=== PATIENT | male | born 1965 | race Caucasian/White ===

== ENCOUNTER 2019-01-05 02:37 | Inpatient (IN) | payer OTHER ==
[2019-01-05] MEDS ORDERED: KETOROLAC TROMETHAMINE 30 MG/1 ML VIAL IVPUSH ONE (03:23)
[2019-01-05] MEDS ORDERED: KETOROLAC TROMETHAMINE 30 MG/1 ML VIAL ONE (03:30)
[2019-01-05 03:48] LABS: BASO % 0.3 % (0-2.0); EOS % 1.3 % (0-4.5); HEMATOCRIT 46.3 % (35.4-49); HEMOGLOBIN 15.3 GM/dL (11.7-16.9); LYMPH % 12.1 % (8-40); MCH 30.5 pg (25.7-33.7); MCHC 33.1 g/dl (32.0-35.9); MEAN CELL VOLUME 92.3 fl (80-96); MEAN PLT VOLUME 7.6 fl (7.5-11.1); MONO % 5.7 % (3.8-10.2); NEUT % 80.6 % (42.8-82.8); PLATELET COUNT 282 K/MM3 (134-434); RBC 5.02 M/mm3 (4.00-5.60); WHITE BLOOD COUNT 14.1 K/mm3 (4.0-10.0)
[2019-01-05 04:11] LABS: EPI CELLS 0.3 /HPF (0-5/HPF); PH,URINE 5.5 (5.0-8.0); URINE APPEARANCE CLEAR; URINE BACTERIA 2.7 /hpf (NEGATIVE); URINE BILIRUBIN NEGATIVE (NEGATIVE); URINE CASTS 1 /lpf (0-8); URINE COLOR YELLOW; URINE GLUCOSE (UA) NEGATIVE (NEGATIVE); URINE KETONE NEGATIVE (NEGATIVE); URINE LEUK ESTERASE NEGATIVE (NEGATIVE); URINE NITRITE NEGATIVE (NEGATIVE); URINE PROTEIN TRACE (NEGATIVE); URINE RBC 114 /hpf (0-4); URINE UROBILINOGEN 0.2 mg/dL (0.2-1.0); URINE WBC 2 /hpf (0-5)
[2019-01-05 04:25] LABS: ALBUMIN 4.2 g/dl (3.4-5.0); ALK PHOS 110 U/L (45-117); ANION GAP 9 MMOL/L (8-16); BILIRUBIN,TOTAL 0.5 mg/dL (0.2-1); BLOOD UREA NITROGEN 17 mg/dL (7-18); CALCIUM 9.1 mg/dL (8.5-10.1); CHLORIDE 110 mmol/L (98-107); CO2 21 mmol/L (21-32); CREATININE 1.1 mg/dL (0.55-1.3); GLUCOSE,RANDOM 115 mg/dL (74-106); POTASSIUM 3.7 mmol/L (3.5-5.1); SGOT/AST 34 U/L (15-37); SGPT/ALT 68 U/L (13-61); SODIUM 139 mmol/L (136-145)
[2019-01-05] MEDS ORDERED: HYDROmorphone HCL CARPU-JECT 2 MG/1 ML DISP.SYRIN IVPUSH ONE (04:33)
[2019-01-05] MEDS ORDERED: HYDROmorphone HCl 2 MG/ML VIAL ONE (04:42)
--- NOTE | 2019-01-05 05:21 | PDOC ---
History of Present Illness - General Chief Complaint: Pain, Acute Stated Complaint: PAIN,KIDNEY Time Seen by Provider: 01/05/19 03:19 History Source: Patient Exam Limitations: No Limitations - History of Present Illness Initial Comments: 01/05/19 05:13 53M with a PMH of HTN and nephrolithiasis who presents with 2 days of L flank pain. Pt states that he was seen recently at [facility] and left AMA. He admits to L flank pain which radiates down to his pelvis. He denies hematuria, fever, chills , nausea, vomiting, testicular pain. Past History - Past Medical History Allergies/Adverse Reactions: Allergies Allergy/AdvReac Type Severity Reaction Status Date / Time No Known Allergies Allergy Verified 01/05/19 03:16 Home Medications: Ambulatory Orders Metaxalone 400 mg PO Q8H PRN #30 tablet 01/01/16 Oxycodone HCl/Acetaminophen [Percocet 5-325 mg Tablet -] 1 - 2 tab PO Q4H PRN # 10 tablet MDD 4 01/01/16 - Suicide/Smoking/Psychosocial Hx Smoking History: Never smoked Have you smoked in the past 12 months: No Information on smoking cessation initiated: No Hx Alcohol Use: No Drug/Substance Use Hx: No Review of Systems - Review of Systems Able to Perform ROS?: Yes Comments:: 01/05/19 05:21 GENERAL/CONSTITUTIONAL: No fever or chills. No weakness. HEAD, EYES, EARS, NOSE AND THROAT: No change in vision. No ear pain or discharge. No sore throat. CARDIOVASCULAR: No chest pain, palpitations, or lightheadedness. RESPIRATORY: No cough, wheezing, shortness of breath, or hemoptysis. GASTROINTESTINAL: No nausea, vomiting, diarrhea, constipation, or abdominal pain. GENITOURINARY: + for L flank pain. No dysuria, frequency, hematuria, or change in urination. MUSCULOSKELETAL: No joint or muscle swelling or pain. No neck or back pain. SKIN: No rash or lesions. NEUROLOGIC: No headache, numbness, tingling, focal weakness, loss of consciousness, or change in strength/sensation. Is the patient limited Singaporean proficient: No *Physical Exam - Vital Signs Last Vital Signs Temp Pulse Resp BP Pulse Ox 97.9 F 75 18 145/98 98 01/05/19 02:37 01/05/19 02:37 01/05/19 02:37 01/05/19 02:37 01/05/19 02:37 - Physical Exam Comments: 01/05/19 05:22 GENERAL: Well developed, well nourished. Awake and alert. In moderate distress. HEENT: Normocephalic, atraumatic. Hearing grossly normal. Moist mucous membranes. PERRLA, EOMI. No conjunctival pallor. Sclera are non-icteric. NECK: Supple. Full ROM. No JVD. CARDIOVASCULAR: Regular rate and rhythm. No murmurs, rubs, or gallops. PULMONARY: No evidence of respiratory distress. Lungs clear to auscultation bilaterally. No wheezing, rales or rhonchi. ABDOMINAL: Soft. TTP in LLQ. Non-distended. No rebound or guarding. GENITOURINARY: L CVA tenderness. MUSCULOSKELETAL: Normal range of motion at all joints. No bony deformities or tenderness. EXTREMITIES: No cyanosis. No clubbing. No edema. No calf tenderness or swelling. SKIN: Warm and dry. Normal capillary refill. No rashes. No jaundice. NEUROLOGICAL: Alert, awake, appropriate. Cranial nerves 2-12 grossly intact. Normal speech. Gait is normal without ataxia. PSYCHIATRIC: Cooperative. Good eye contact. Appropriate mood and affect. ED Treatment Course - LABORATORY CBC & Chemistry Diagram: 01/05/19 03:30 01/05/19 03:30 - ADDITIONAL ORDERS Additional order review: Laboratory Results 01/05/19 01/05/19 03:52 03:30 Sodium 139 Potassium 3.7 Chloride 110 H Carbon Dioxide 21 Anion Gap 9 BUN 17 Creatinine 1.1 Creat Clearance w eGFR 69.76 Random Glucose 115 H Calcium 9.1 Total Bilirubin 0.5 AST 34 ALT 68 H Alkaline Phosphatase 110 Total Protein 8.0 Albumin 4.2 Urine Color Yellow Urine Appearance Clear Urine pH 5.5 Ur Specific [place] 1.019 Urine Protein Trace Urine Glucose (UA) Negative Urine Ketones Negative Urine Blood 2+ H Urine Nitrite Negative Urine Bilirubin Negative Urine Urobilinogen 0.2 Ur Leukocyte Esterase Negative Urine WBC (Auto) 2 Urine RBC (Auto) 114 Urine Casts (Auto) 1 U Epithel Cells (Auto) 0.3 Urine Bacteria (Auto) 2.7 01/05/19 03:30 RBC 5.02 MCV 92.3 MCHC 33.1 RDW 14.0 MPV 7.6 Neutrophils % 80.6 Lymphocytes % 12.1 Monocytes % 5.7 Eosinophils % 1.3 Basophils % 0.3 - RADIOLOGY Radiology Studies Ordered: Category Date Time Status ABDOMEN & PELVIS CT W/O CONTR [CT] Stat CT Scan 01/05/19 03:51 Taken - Medications Given in the ED: ED Medications Discontinued Medications Generic Name Dose Route Start Last Admin Trade Name Freq PRN Reason Stop Dose Admin Hydromorphone HCl 1 mg 01/05/19 04:33 01/05/19 04:47 Dilaudid Injection - IVPUSH 01/05/19 04:34 1 mg ONCE ONE Administration Ketorolac Tromethamine 30 mg 01/05/19 03:23 01/05/19 03:42 Toradol Injection - IVPUSH 01/05/19 03:24 30 mg ONCE ONE Administration Medical Decision Making - Medical Decision Making 01/05/19 05:23 53M with PMH of nephrolithiasis who presents with L flank pain and CT showing hydroureter with >8mm stone. UA negative for UTI. Treating pt's pain. Will consult urology. 01/05/19 06:14 CT shows multiple stones causing severe L hydro. Dr. Newman aware of pt and agrees with plan. Pending call back from hospitalist. 01/05/19 06:[address] Skinner for admission. *DC/Admit/Observation/Transfer Diagnosis at time of Disposition: Nephrolithiasis Hydronephrosis Qualifiers: Hydronephrosis type: unspecified Qualified Code(s): N13.30 - Unspecified hydronephrosis - Discharge Dispostion Condition at time of disposition: Guarded Decision to Admit order: Yes - Referrals Referrals: Anthony Duggan MD [Primary Care Provider] - - Patient Instructions - Post Discharge Activity
--- NOTE | 2019-01-05 05:25 | PDOC ---
Documentation entered by Johny Mcmullen SCRIBE, acting as scribe for Juliette Cummings DO. Juliette Cummings DO: This documentation has been prepared by the Kemi paez Matthew, SCRIBE, under my direction and personally reviewed by me in its entirety. I confirm that the documentation accurately reflects all work, treatment, procedures, and medical decision making performed by me. Attending Attestation - Resident Resident Name: Collin Sorto - ED Attending Attestation I have performed the following: I have examined & evaluated the patient, The case was reviewed & discussed with the resident, I agree w/resident's findings & plan - HPI HPI: 01/05/19 04:29 Patient is a 53 year old male with no significant past medical history who presents to the ED with complaints of left sided flank pain. Patient reports experiencing gradually increased left flank pain that he states is kidney stone since this morning. He reports coming into the ED earlier today and was told it was a kidney stone before leaving the hospital AMA. Patient reports returning to the ED for further evaluation when pain did not subside overtime and increased in intensity. Denies chest pain, sob. Denies nausea,vomiting. Denies fevers, chills. Denies contact with sick individuals, out of state travelling. Denies dysuria, hematuria. Denies constipation, diarrhea. Denies any other symptoms. Allergies: None Social history: No smoking. No alcohol. No illicit drugs. Surgical history: None PMD: Dr. Duggan - Physicial Exam PE: 01/05/19 04:29 Agree with residents Physical Exam. - Medical Decision Making 01/05/19 05:23 53-year-old male with a left flank pain CT scan shows multiple left-sided ureteral stones with severe left hydronephrosis Plan for admission to medical service with urology consultation
[2019-01-05] MEDS ORDERED: SODIUM CHLORIDE 1,000 ML IV SCH (07:45)
[2019-01-05] MEDS ORDERED: KETOROLAC TROMETHAMINE 10 MG TABLET PO PRN (07:46)
[2019-01-05] MEDS ORDERED: ACETAMINOPHEN 325 MG TABLET (FP) PO PRN (08:33)
[2019-01-05] MEDS ORDERED: TAMSULOSIN HCL 0.4 MG CAP ONE (08:44)
[2019-01-05] MEDS ORDERED: CEFTRIAXONE 1 GM/50 ML BAG ONE (08:44)
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
[2019-01-05] MEDS: TAMSULOSIN HCL 0.4 MG CAP PO SCH (08:58)
[2019-01-05] MEDS: CEFTRIAXONE 1 GM in DEXTROSE 5%-WATER - 50 ML IVPB SCH ×2 (08:59→09:13)
[2019-01-05] MEDS: SODIUM CHLORIDE 1,000 ML IV SCH ×2 (08:59→18:31)
[2019-01-05] MEDS: KETOROLAC TROMETHAMINE 15 MG/ML VIAL IVPUSH PRN ×2 (09:11→16:11)
[2019-01-05] MEDS ORDERED: morphine SULFATE 4 MG/ML VIAL IVPUSH ONE (09:30)
[2019-01-05] MEDS ORDERED: morphine SULFATE 4 MG/ML VIAL ONE (09:43)
[2019-01-05] MEDS ORDERED: amLODIPine BESYLATE 5 MG TABLET (FP) ONE (09:44)
[2019-01-05] MEDS ORDERED: HEPARIN NA (PORCINE) 5,000 UNITS/ML 1ML VIAL ONE (09:44)
[2019-01-05] MEDS ORDERED: CEFTRIAXONE 1 GM in DEXTROSE 5%-WATER - 50 ML IVPB SCH (10:00)
[2019-01-05] MEDS: HEPARIN NA (PORCINE) 5,000 UNITS/ML 1ML VIAL SQ SCH ×2 (10:05→16:13)
[2019-01-05] MEDS: amLODIPine BESYLATE 10 MG TABLET (FP) PO SCH (10:09)
[2019-01-05 10:14] LABS: INR 0.97 (0.83-1.09); PROTHROMBIN TIME (PATIENT) 11.4 SEC (9.7-13.0)
[2019-01-05 10:17] LABS: ACTIVATED PTT 32.1 SECONDS (25.2-36.5)
[2019-01-05 12:21] VITALS: BMI 26.0
--- NOTE | 2019-01-05 14:18 | CON.GU ---
Consult Consult Specialty:: Urology Reason for Consultation:: Left flank pain /renal calculi - History of Present Illness Chief Complaint: lef tflank pain History of Present Illness: 53 yo male w long hx of stones requiring tx 8 years ago also passed many since Found to have left 13 and 5 mm stone. Severe hydro - Alcohol/Substance Use Hx Alcohol Use: No - Smoking History Smoking history: Never smoked Have you smoked in the past 12 months: No Home Medications - Allergies Allergies/Adverse Reactions: Allergies Allergy/AdvReac Type Severity Reaction Status Date / Time No Known Allergies Allergy Verified 01/05/19 03:16 - Home Medications Home Medications: Ambulatory Orders Amlodipine Besylate [Norvasc -] 10 mg PO DAILY 01/05/19 Physical Exam- Vital Signs: Vital Signs Temperature 98.3 F 01/05/19 11:30 Pulse Rate 69 01/05/19 11:30 Respiratory Rate 18 01/05/19 11:30 Blood Pressure 147/99 01/05/19 11:30 O2 Sat by Pulse Oximetry (%) 98 01/05/19 11:30 Constitutional: Yes: Well Nourished Eyes: Yes: WNL HENT: Yes: WNL Neck: Yes: WNL Cardiovascular: Yes: WNL Respiratory: Yes: CTA Bilaterally Gastrointestinal: Yes: WNL Renal/: Yes: CVA Tenderness - Left Kidneys: Yes: Flank Pain Left, Tenderness Testicles: Yes: WNL Labs: CBC, BMP 01/05/19 03:30 01/05/19 03:30 Imaging - Results Cat Scan: Report Reviewed Problem List - Problems (1) Hydronephrosis Assessment/Plan: 53 yo male w hx of stone now w left renal colic w 13 mm obstructing stone Pt states he has passed stones before and does not want tx yet Discussed poor chance to pass stone however refusing procedure at this time IV fluids and hydration analgesics prn monitor for dev sepsis currently no SIRS criteria will follow Code(s): N13.30 - UNSPECIFIED HYDRONEPHROSIS Qualifiers: Hydronephrosis type: unspecified
--- NOTE | 2019-01-05 16:02 | PN ---
Teaching Attending Note Name of Resident: Asuncion Lebron ATTENDING PHYSICIAN STATEMENT I saw and evaluated the patient. I reviewed the resident's note and discussed the case with the resident. I agree with the resident's findings and plan as documented with exceptions below. SUBJECTIVE: 53 yom with PMHx of nephrolithiasis s/p ?lithotripsy 3 years ago, HTN admitted with left flank pain radiating down left groin, hematuria, found with severe left hydronephrosis and mid and distal left ureteral calculi. Currently patient is pain free, not passed stone yet but reports hematuria. No fevers, chills or urinary symptoms otherwise reports being seen at [facility] 2-3 days ago when left AMA as 'it took too long'. 12 point ROS done, neg except above. Reports home BP poorly controlled 140s/99 OBJECTIVE: Vital Signs Period Temp Pulse Resp BP Sys/Jackson Pulse Ox Last 24 Hr 97.9 F-98.3 F 64-80 18-19 135-147/91-99 96-99 Intake & Output 01/02/19 01/03/19 01/04/19 01/05/19 23:59 23:59 23:59 23:59 Weight 142 lb 4 oz GENERAL: Awake, alert, and fully oriented, in no acute distress. HEAD: Normal with no signs of trauma. EYES: Pupils equal, round and reactive to light, extraocular movements intact, sclera anicteric, conjunctiva clear. No lid lag. EARS, NOSE, THROAT: Ears normal, nares patent, oropharynx clear without exudates. Moist mucous membranes. NECK: Normal range of motion, supple, no JVd LUNGS: Breath sounds equal, clear to auscultation bilaterally. No wheezes, and no crackles. No accessory muscle use. HEART: Regular rate and rhythm, normal S1 and S2 ABDOMEN: Soft, nontender, not distended, normoactive bowel sounds, no guarding, no rebound, no masses. no flank/CVA or suprapubic tenderness noted currently MUSCULOSKELETAL: Normal range of motion at all joints. No bony deformities or tenderness. No CVA tenderness. UPPER EXTREMITIES: 2+ pulses, warm, well-perfused. No cyanosis. No clubbing. No peripheral edema. LOWER EXTREMITIES: 2+ pulses, warm, well-perfused. No calf tenderness. No peripheral edema. NEUROLOGICAL: AAox3, facial symmetry, tongue midline, power 5/5, sensation intact and symmetric to light touch, Cranial nerves II-XII intact. Normal speech. Gait not observed PSYCHIATRIC: Cooperative. Good eye contact. Appropriate mood and affect. SKIN: Warm, dry, normal turgor, no rashes or lesions noted, normal capillary refill. Home Medications Medication Instructions Recorded Amlodipine Besylate [Norvasc -] 10 mg PO DAILY 01/05/19 Active Medications Acetaminophen (Tylenol -) 650 mg PO Q6H PRN PRN Reason: PAIN LEVEL 7 - 10 Amlodipine Besylate (Norvasc -) 10 mg PO DAILY [facility] Last Admin: 01/05/19 10:09 Dose: 10 mg Heparin Sodium (Porcine) (Heparin -) 5,000 unit SQ TID [facility] Last Admin: 01/05/19 10:05 Dose: 5,000 unit Ceftriaxone Sodium 1 gm/ (Dextrose) 50 mls @ 100 mls/hr IVPB DAILY [facility] Last Admin: 01/05/19 09:13 Dose: 100 mls/hr Sodium Chloride (Normal Saline -) 1,000 mls @ 125 mls/hr IV ASDIR [facility] Last Admin: 01/05/19 08:59 Dose: 125 mls/hr Ketorolac Tromethamine (Toradol Injection -) 15 mg IVPUSH Q6H PRN PRN Reason: PAIN LEVEL 7 - 10 Stop: 01/10/19 08:32 Last Admin: 01/05/19 09:11 Dose: 15 mg Tamsulosin HCl (Flomax -) 0.4 mg PO DAILY@0830 [facility] Last Admin: 01/05/19 08:58 Dose: 0.4 mg Laboratory Results - last 24 hr 01/05/19 01/05/19 01/05/19 03:30 03:30 03:52 WBC 14.1 H RBC 5.02 Hgb 15.3 Hct 46.3 MCV 92.3 MCH 30.5 MCHC 33.1 RDW 14.0 Plt Count 282 MPV 7.6 Absolute Neuts (auto) 11.4 H Neutrophils % 80.6 Lymphocytes % 12.1 Monocytes % 5.7 Eosinophils % 1.3 Basophils % 0.3 Nucleated RBC % 0 PT with INR INR PTT (Actin FS) Sodium 139 Potassium 3.7 Chloride 110 H Carbon Dioxide 21 Anion Gap 9 BUN 17 Creatinine 1.1 Creat Clearance w eGFR 69.76 Random Glucose 115 H Calcium 9.1 Total Bilirubin 0.5 AST 34 ALT 68 H Alkaline Phosphatase 110 Total Protein 8.0 Albumin 4.2 Urine Color Yellow Urine Appearance Clear Urine pH 5.5 Ur Specific [place] 1.019 Urine Protein Trace Urine Glucose (UA) Negative Urine Ketones Negative Urine Blood 2+ H Urine Nitrite Negative Urine Bilirubin Negative Urine Urobilinogen 0.2 Ur Leukocyte Esterase Negative Urine WBC (Auto) 2 Urine RBC (Auto) 114 Urine Casts (Auto) 1 U Epithel Cells (Auto) 0.3 Urine Bacteria (Auto) 2.7 Blood Type Antibody Screen 01/05/19 01/05/19 01/05/19 09:28 09:28 13:05 WBC RBC Hgb Hct MCV MCH MCHC RDW Plt Count MPV Absolute Neuts (auto) Neutrophils % Lymphocytes % Monocytes % Eosinophils % Basophils % Nucleated RBC % PT with INR 11.40 INR 0.97 PTT (Actin FS) 32.1 Sodium Potassium Chloride Carbon Dioxide Anion Gap BUN Creatinine Creat Clearance w eGFR Random Glucose Calcium Total Bilirubin AST ALT Alkaline Phosphatase Total Protein Albumin Urine Color Urine Appearance Urine pH Ur Specific [place] Urine Protein Urine Glucose (UA) Urine Ketones Urine Blood Urine Nitrite Urine Bilirubin Urine Urobilinogen Ur Leukocyte Esterase Urine WBC (Auto) Urine RBC (Auto) Urine Casts (Auto) U Epithel Cells (Auto) Urine Bacteria (Auto) Blood Type O POSITIVE O POSITIVE Antibody Screen Negative CT A/P results reviewed ASSESSMENT AND PLAN: 53 yom with [place] left ureteral calculi with severe hydronephrosis -left obstructive uropathy -HTN -Hematuria Plan: Urology input noted. Discussed in detail with patient, given size of stones, poor chance that will pass. High risk for ongoing obstruction, infection, sepsis and recurrent hospital admissions. Patient agreable to intervention as deemed necessary. Discussed with Dr. Carranza. Possible stent placement in AM, NPO after midnight. Aggressive IVF. Strain all urine. Emperic ceftriaxone, follow up urine cultures. Pain control with tylenol/toradol. DVTPPX lovenox, hold in AM Dispo pending clinical improvement. Plan discussed with patient and at bedside in detail, all questions answered. Care co-ordinated with urology and RN. Total admit time spent 65 min.
[2019-01-06] MEDS: SODIUM CHLORIDE 1,000 ML IV SCH ×2 (01:35→10:10)
[2019-01-06] MEDS: KETOROLAC TROMETHAMINE 15 MG/ML VIAL IVPUSH PRN ×2 (03:59→11:17)
[2019-01-06 07:35] LABS: BASO % 0.4 % (0-2.0); EOS % 4.9 % (0-4.5); HEMATOCRIT 42.8 % (35.4-49); HEMOGLOBIN 14.5 GM/dL (11.7-16.9); LYMPH % 24.7 % (8-40); MCH 31.2 pg (25.7-33.7); MEAN CELL VOLUME 91.8 fl (80-96); MEAN PLT VOLUME 7.7 fl (7.5-11.1); MONO % 9.5 % (3.8-10.2); NEUT % 60.5 % (42.8-82.8); PLATELET COUNT 265 K/MM3 (134-434); RBC 4.67 M/mm3 (4.00-5.60); RDW 13.8 % (11.9-15.9)
[2019-01-06] MEDS ORDERED: ONDANSETRON 4 MG/2 ML VIAL IVPUSH PRN (07:45)
[2019-01-06] MEDS ORDERED: PROMETHAZINE HCL 25 MG/1 ML VIAL IVPB PRN (07:45)
[2019-01-06] MEDS ORDERED: LACTATED RINGERS SOLUTION 1,000 ML IV SCH (07:45)
[2019-01-06 07:51] LABS: CALCIUM 8.2 mg/dL (8.5-10.1); CREATININE 1.1 mg/dL (0.55-1.3); MAGNESIUM 2.3 mg/dL (1.8-2.4); POTASSIUM 3.7 mmol/L (3.5-5.1)
[2019-01-06] MEDS ORDERED: cefTRIAXone SODIUM 1 GM VIAL ONE (07:51)
[2019-01-06] MEDS ORDERED: DEXTROSE 5%-WATER - 50 ML IVPB ONE (07:52)
[2019-01-06] MEDS ORDERED: MIDAZOLAM HCL 2 MG/2 ML SINGLE DOSE VIAL ONE (07:52)
[2019-01-06] MEDS ORDERED: PROPOFOL 20 ML ONE (07:52)
[2019-01-06] MEDS ORDERED: LIDOCAINE HCL/PF 2% SDV 5ML VIAL ONE (07:54)
[2019-01-06] MEDS ORDERED: SODIUM CHLORIDE 0.9% P/F 10 ML VIAL IJ ONE (08:06)
[2019-01-06] MEDS ORDERED: cefTRIAXone SODIUM 1 GM VIAL IVPB ONE (08:15)
[2019-01-06] MEDS ORDERED: DEXAMETHASONE SOD PHOSPHATE 4 MG/1 ML VIAL ONE (08:18)
--- NOTE | 2019-01-06 08:34 | OP ---
Operative Note - Note: Operative Date: 01/06/19 Pre-Operative Diagnosis: Left ureteral calculus Operation: cystoscopt left ureteral stent placement Implants: 13 mm left ureteral stone Surgeon: Cedrick Carranza MD. Anesthesia: General Drains & Tubes with Location: 22 cm 6 fr dj stent
--- NOTE | 2019-01-06 09:12 | OP ---
DATE OF OPERATION: 01/06/2019 SURGEON: Cedrick Carranza MD PREOPERATIVE DIAGNOSIS: Left ureteral calculus. POSTOPERATIVE DIAGNOSIS: Left ureteral calculus. PROCEDURE: Cystoscopy, left ureteral double-J stent placement. HISTORY: This is a 53-year-old gentleman with a long history of renal calculi, was found to have a 13-mm obstructing left mid-ureteral stone with resulting hydronephrosis. After discussing treatment options, the patient elected to undergo the above stated procedure. Risks and benefits of treatment and alternative treatment options were discussed in detail. All questions were answered. BRIEF OPERATIVE NOTE: The patient was brought to the operating room, placed in supine position. General anesthesia was administered. Patient was transferred to the dorsal lithotomy position, prepped and draped in standard sterile fashion. Intravenous antibiotics were given. At this time, a 22-cm 6-[place] double-J stent was placed over a sensor wire. It was fluoroscopically confirmed to be in normal position. The wire was removed. The bladder was drained. All instruments were removed. The patient was brought to the recovery room in stable and satisfactory condition. CEDRICK CARRANZA M.D. CANDIDA/[id number]
[2019-01-06] MEDS ORDERED: ACETAMINOPHEN 325 MG TABLET (FP) PO PRN (09:54)
[2019-01-06 11:06] VITALS: BP 134/79; PULSE 62; TEMP 97.8
[2019-01-06] MEDS: CEFTRIAXONE 1 GM in DEXTROSE 5%-WATER - 50 ML IVPB SCH (11:06)
[2019-01-06] MEDS: TAMSULOSIN HCL 0.4 MG CAP PO SCH (11:18)
[2019-01-06] MEDS: amLODIPine BESYLATE 10 MG TABLET (FP) PO SCH (11:18)
--- NOTE | 2019-01-06 13:32 | DS ---
Physical Exam: SUBJECTIVE: Patient seen and examined, no pain, tolerating diet well. OBJECTIVE: Vital Signs Period Temp Pulse Resp BP Sys/Jackson Pulse Ox Last 24 Hr 97.6 F-98.1 F 60-72 18-18 127-144/72-99 96-98 PHYSICAL EXAM GENERAL: The patient is awake, alert, and fully oriented, in no acute distress. HEAD: Normal with no signs of trauma. EYES: PERRL, extraocular movements intact, sclera anicteric, conjunctiva clear. ENT: Ears normal, nares patent, oropharynx clear without exudates, moist mucous membranes. NECK: Trachea midline, full range of motion, supple. LUNGS: Breath sounds equal, clear to auscultation bilaterally, no wheezes, no crackles, no accessory muscle use. HEART: Regular rate and rhythm, S1, S2 ABDOMEN: Soft, nontender, nondistended, normoactive bowel sounds, no guarding, no rebound EXTREMITIES: 2+ pulses, warm, well-perfused, no edema. NEUROLOGICAL: AAOX3, Cranial nerves II through XII grossly intact. Normal speech , gait not observed. PSYCH: Normal mood, normal affect. SKIN: Warm, dry, normal turgor, no rashes or lesions noted. LABS Laboratory Results - last 24 hr 01/05/19 01/06/19 01/06/19 13:05 06:10 06:10 WBC 8.0 RBC 4.67 Hgb 14.5 Hct 42.8 MCV 91.8 MCH 31.2 MCHC 34.0 RDW 13.8 Plt Count 265 MPV 7.7 Absolute Neuts (auto) 4.9 Neutrophils % 60.5 D Lymphocytes % 24.7 D Monocytes % 9.5 Eosinophils % 4.9 H D Basophils % 0.4 Nucleated RBC % 0 Sodium 144 Potassium 3.7 Chloride 116 H Carbon Dioxide 21 Anion Gap 7 L BUN 14 Creatinine 1.1 Est GFR (CKD-EPI)AfAm 87.74 Est GFR (CKD-EPI)NonAf 75.70 Random Glucose 98 Calcium 8.2 L Phosphorus 3.0 Magnesium 2.3 Blood Type O POSITIVE Microbiology 01/05/19 03:52 Urine - Urine Clean Catch Urine Culture - Final NO GROWTH OBTAINED CT A/P: The lung bases are clear. There multiple calcifications within the left ureter consistent with partially obstructing calculi. The distal ureteral calculi measure 7 and 11 mm. There may be a third tiny stone within this cluster, as well. The midureteral calculi measure 13 and 5 mm. There also appears to be an additional tiny stone within this cluster. There is severe hydronephrosis associated with these calculi. There are additional tiny calculi within the both upper collecting systems consistent with nonobstructing calculi. There is no evidence of right-sided calculi or obstructive uropathy. No significant abnormalities of the liver, spleen, pancreas, or adrenal glands are identified. The gallbladder has been removed. There is no evidence of intra-abdominal, retroperitoneal or pelvic mass lesions, fluid collections or lymphadenopathy. There is no evidence of pneumoperitoneum, bowel obstruction or intra-abdominal abscess. There is no CT evidence of acute appendicitis or diverticulitis. The prostate gland is mildly enlarged. There is no evidence of acute bony pathology. IMPRESSION: 1. Multiple mid and distal left ureteral calculi with severe hydronephrosis. 2. No evidence of right-sided obstructive uropathy. 3. No additional evidence of acute pathology within the abdomen or pelvis. Please see above discussion. HOSPITAL COURSE: Date of Admission:01/05/19 Date of Discharge: 01/06/19 Minutes to complete discharge: 40 Discharge Summary Reason For Visit: CALCULUS OF ARI, TEVINTER Current Active Problems Hydronephrosis (Acute) Nephrolithiasis (Acute) Hospital Course: 53 yom with PMHx of nephrolithiasis s/p ?lithotripsy 3 years ago, HTN admitted with left flank pain radiating down left groin, hematuria, found with severe left hydronephrosis and mid and distal left ureteral calculi. He was placed on ceftriaxone, ua and urine cultures were negative. He was seen by urology and had left ureteral stent placement. His pain has resolved and he will be discharged on prophylactic antibiotics with urology follow up next week for stent removal. Condition: Stable - Instructions Diet, Activity, Other Instructions: You were admitted with blocked kidney stone with kidney enlargement. You received antibiotics and had stent placed by urologist. It is very important that you follow up with urology. Please go to Dr. Carranza's office today after discharge [address] [facility] [facility], [address] MEDICATIONS: Start these new medications: Flomax Antibiotic cefuroxime twice a day for 7 days Continue amlodipine as before FOLLOW UP: You are scheduled for stent removal with Dr. Carranza on 01/11/2019, please call his office on discharge to confirm You are advised to follow up with your PCP Dr. Duggan prior to urology appointment for medical check up. Please call his office today to schedule follow up in 2-3 days. If you notice any fevers, chills, worsening pain, urinary symptoms, or any new concerns, call 911 or come to the ED. Referrals: Anthony Duggan MD [Primary Care Provider] - Cedrick Carranza MD., MD [Staff Physician] - 1 Week Disposition: HOME - Home Medications Comprehensive Discharge Medication List: Ambulatory Orders Amlodipine Besylate [Norvasc -] 10 mg PO DAILY 01/05/19 Acetaminophen [Tylenol .Regular Strength -] 650 mg PO Q6H PRN tablet 01/06/19 Cefuroxime Axetil [Cefuroxime] 500 mg PO BID #14 tablet 01/06/19 Ibuprofen 200 mg PO Q6H PRN #10 tablet 01/06/19 Tamsulosin HCl [Flomax -] 0.4 mg PO DAILY@0830 #30 cap.er.24h 01/06/19 This patient is new to me today: No Emergency Visit: Yes ED Registration Date: 01/05/19 Care time: The patient presented to the Emergency Department on the above date and was hospitalized for further evaluation of their emergent condition. Critical Care patient: No - Discharge Referral Referred to [facility] Med P.C.: No
--- NOTE | 2019-01-06 17:16 | EKG ---
Test Reason : Blood Pressure : / mmHG Vent. Rate : 068 BPM Atrial Rate : 068 BPM P-R Int : 144 ms QRS Dur : 084 ms QT Int : 390 ms P-R-T Axes : 041 037 040 degrees QTc Int : 414 ms NORMAL SINUS RHYTHM NORMAL ECG NO PREVIOUS ECGS AVAILABLE Confirmed by KIMBERLY PAINTING MD ([id number]) on 01/06/2019 5:15:38 PM Referred By: Confirmed By:KIMBERLY PAINTING MD
== END 2019-01-06 15:59 | disposition home or self-care (01) | DRG 465 ==
LOC: JER 02:37 → JERBED 05:30 → J5S 11:26
PROVIDERS: ADMIT Internal Medicine; ATTEND Hospitalist
PROC: 0T778DZ Dilation of Left Ureter with Intraluminal Device, Via Natural or Artificial Opening Endoscopic (ICD-10-PCS; principal; 2019-01-06 08:00)
DX: N13.2 Hydronephrosis with renal and ureteral calculous obstruction (principal); I10 Essential (primary) hypertension; R31.9 Hematuria, unspecified
CPT/HCPCS: 36415; 71045-TC-FY; 74176-TC; 76000-TC-FY; 80048; 80053; 81003; 83735; 84100; 85025; 85610; 85730; 86850; 86900; 86901; 87086; 93005; 93010; 94760; 99284-25; J1644; J7030